=== PATIENT | male | born 1985 | race American Indian/Alaskan Native ===

== ENCOUNTER 2017-09-26 20:10 | Emergency (ER) | payer OTHER ==
[2017-09-26] MEDS ORDERED: TYLENOL ONE (21:17)
[2017-09-26] MEDS ORDERED: TYLENOL PO ONE (21:28)
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
[2017-09-27] MEDS ORDERED: MOTRIN PO ONE (02:00)
[2017-09-27] MEDS ORDERED: MOTRIN ONE (02:06)
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
[2017-09-27] MEDS ORDERED: FLEXERIL PO ONE (02:36)
[2017-09-27] MEDS ORDERED: FLEXERIL ONE (02:36)
[2017-09-27 05:17] VITALS: BP 138/89
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
== END 2017-09-27 04:45 | disposition home or self-care (01) ==
LOC: ED 20:10
DX: S16.1XXA Strain of muscle, fascia and tendon at neck level, initial encounter (principal); F17.200 Nicotine dependence, unspecified, uncomplicated; V49.40XA Driver injured in collision with unspecified motor vehicles in traffic accident, initial encounter; Y93.89 Activity, other specified; Y92.89 Other specified places as the place of occurrence of the external cause; Y99.8 Other external cause status
CPT/HCPCS: 71046; 72125; 99284

== ENCOUNTER 2019-03-02 13:42 | Emergency (ER) | payer OTHER ==
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
[2019-03-02 14:28] VITALS: BP 130/82
== END 2019-03-02 14:28 | disposition home or self-care (01) ==
LOC: ED 13:42
DX: S46.812A Strain of other muscles, fascia and tendons at shoulder and upper arm level, left arm, initial encounter (principal); Z79.899 Other long term (current) drug therapy; Z21 Asymptomatic human immunodeficiency virus [HIV] infection status; V87.7XXA Person injured in collision between other specified motor vehicles (traffic), initial encounter; Y93.89 Activity, other specified; Y92.488 Other paved roadways as the place of occurrence of the external cause; Y99.8 Other external cause status
CPT/HCPCS: 99282

== ENCOUNTER 2019-04-16 10:15 | Emergency (ER) | payer OTHER ==
[2019-04-16 10:43] VITALS: BP 122/84
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
[2019-04-16] MEDS ORDERED: IBUPROFEN 800 MG TAB PO ONE (12:34)
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
== END 2019-04-16 13:16 | disposition home or self-care (01) ==
LOC: ED 10:15
DX: M25.512 Pain in left shoulder (principal); M54.2 Cervicalgia; F17.200 Nicotine dependence, unspecified, uncomplicated; F10.10 Alcohol abuse, uncomplicated; F12.10 Cannabis abuse, uncomplicated; Z21 Asymptomatic human immunodeficiency virus [HIV] infection status; Z79.899 Other long term (current) drug therapy; V49.49XA Driver injured in collision with other motor vehicles in traffic accident, initial encounter; Y93.89 Activity, other specified; Y92.410 Unspecified street and highway as the place of occurrence of the external cause; Y99.8 Other external cause status

== ENCOUNTER 2019-04-24 12:07 | Emergency (ER) | payer OTHER ==
[2019-04-24 12:20] VITALS: BP 130/87
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
== END 2019-04-24 12:30 | disposition left against medical advice (07) ==
LOC: ED 12:07
DX: M25.512 Pain in left shoulder (principal); Z79.899 Other long term (current) drug therapy
CPT/HCPCS: 99281

== ENCOUNTER 2020-04-06 10:05 | Emergency (ER) | payer SELFPAY ==
[2020-04-06 11:39] VITALS: BP 142/71
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
== END 2020-04-06 14:03 | disposition home or self-care (01) ==
LOC: ED 10:05
DX: S39.012A Strain of muscle, fascia and tendon of lower back, initial encounter (principal); S16.1XXA Strain of muscle, fascia and tendon at neck level, initial encounter; Z21 Asymptomatic human immunodeficiency virus [HIV] infection status; Z79.899 Other long term (current) drug therapy; V49.49XA Driver injured in collision with other motor vehicles in traffic accident, initial encounter; Y92.410 Unspecified street and highway as the place of occurrence of the external cause; Y93.89 Activity, other specified; Y99.8 Other external cause status
CPT/HCPCS: 99281

== ENCOUNTER 2020-06-29 10:12 | Emergency (ER) | payer OTHER ==
[2020-06-29 10:31] VITALS: BP 125/80
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
--- NOTE | 2020-06-29 11:07 | XRay Report ---
LEFT SHOULDER 3 VIEWS INDICATION / CLINICAL INFORMATION: shoulder pain. COMPARISON: 04/16/2019 FINDINGS: No significant degenerative change. No abnormal soft tissue calcifications. No fracture or other skel etal abnormality. IMPRESSION: Normal study. No interval change. Signer Name: Alfred Pérez MD Signed: 06/29/2020 11:03 AM Workstation Name: [id number]
== END 2020-06-29 13:12 | disposition home or self-care (01) ==
LOC: ED 10:12
DX: S46.912A Strain of unspecified muscle, fascia and tendon at shoulder and upper arm level, left arm, initial encounter (principal); F17.200 Nicotine dependence, unspecified, uncomplicated; Z79.899 Other long term (current) drug therapy; Z21 Asymptomatic human immunodeficiency virus [HIV] infection status; V49.49XA Driver injured in collision with other motor vehicles in traffic accident, initial encounter; Y92.410 Unspecified street and highway as the place of occurrence of the external cause; Y93.89 Activity, other specified; Y99.8 Other external cause status
CPT/HCPCS: 99283

== ENCOUNTER 2020-08-19 14:47 | Emergency (ER) | payer OTHER ==
[2020-08-19 15:44] VITALS: BP 112/70
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
== END 2020-08-19 18:14 | disposition home or self-care (01) ==
LOC: ED 14:47
DX: S20.212A Contusion of left front wall of thorax, initial encounter (principal); F17.200 Nicotine dependence, unspecified, uncomplicated; Z21 Asymptomatic human immunodeficiency virus [HIV] infection status; Z79.899 Other long term (current) drug therapy; V49.49XA Driver injured in collision with other motor vehicles in traffic accident, initial encounter; Y93.89 Activity, other specified; Y92.488 Other paved roadways as the place of occurrence of the external cause; Y99.8 Other external cause status
CPT/HCPCS: 71046; 99283

== ENCOUNTER 2020-11-13 14:51 | Emergency (ER) | payer SELFPAY ==
[2020-11-13 15:26] VITALS: BP 120/81
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
== END 2020-11-13 17:31 | disposition home or self-care (01) ==
LOC: ED 14:51
DX: M54.9 Dorsalgia, unspecified (principal); Z79.899 Other long term (current) drug therapy; Z21 Asymptomatic human immunodeficiency virus [HIV] infection status; V49.49XA Driver injured in collision with other motor vehicles in traffic accident, initial encounter; Y92.410 Unspecified street and highway as the place of occurrence of the external cause; Y93.89 Activity, other specified; Y99.8 Other external cause status
CPT/HCPCS: 99281

== ENCOUNTER 2021-05-04 21:56 | Emergency (ER) | payer OTHER ==
[2021-05-04 23:44] VITALS: BP 129/77
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
== END 2021-05-05 02:03 | disposition home or self-care (01) ==
LOC: ED 21:56
DX: S20.212A Contusion of left front wall of thorax, initial encounter (principal); V89.2XXA Person injured in unspecified motor-vehicle accident, traffic, initial encounter; Y93.89 Activity, other specified; Y92.89 Other specified places as the place of occurrence of the external cause; Y99.8 Other external cause status
CPT/HCPCS: 99282